=== PATIENT | male | born 1950 | race Caucasian/White ===

== ENCOUNTER 2022-02-23 13:50 | Emergency (ER) | payer MEDICARE, OTHER ==
[2022-02-23] MEDS ORDERED: Lidocaine 1% 5 ML VIAL INJECT ONE (15:03)
[2022-02-23] MEDS ORDERED: Bacitracin Oint 1 GM U/D Packet TOP ONE (15:29)
== END 2022-02-23 15:41 | disposition home or self-care (01) ==
LOC: JP.ED 13:50
DX: S91.011A Laceration without foreign body, right ankle, initial encounter (principal); W26.8XXA Contact with other sharp object(s), not elsewhere classified, initial encounter
CPT/HCPCS: 12001; 99282-25; 99283